=== PATIENT | female | born 1980 | race Caucasian/White ===

== ENCOUNTER 2018-10-14 22:42 | Emergency (ER) | payer MEDICAID ==
[~2018-10-14] VITALS: Ht 154.9 cm; Wt 70.7 kg
[~2018-10-14 22:42] MED LIST: DOCU-144 PO; HYDR-3498 PO; HYDR-762 PO
[2018-10-14 22:45] VITALS: Ht 154.9 cm; Wt 70.7 kg
[2018-10-15] MEDS ORDERED: HYDROCORTISONE 2.5% 30 GM RECT CR PR ONE
--- NOTE | 2018-10-15 00:05 | ERD ---
ER Documentation Chief Complaint Chief Complaint rectal pain x3 days, no bleeding HPI Patient is a 38 years old female with PMHx of hemorroids presenting to the clinic for severe rectal pain x 3 days. Patient reports pain has worsen over the last 3 days where she cannot sit anymore. Patient admits to using OTC tylenol without resolution. Patient reports running out of her hemorrhoid cream. Patient states that she has never followed up with a GI specialist. Patient denies rectal bleeding, abdominal pain, diarrhea, constipation, bloating, fever, chills, night sweats. ROS All systems reviewed and are negative except as per history of present illness. Medications Home Meds Active Scripts Psyllium Husk (with Sugar) (Metamucil Packet) 3.4 Gm Powd.pack, 3.4 GM PO BID for 10 Days Prov:FOZIA RODRIGUEZ PA-C 10/15/18 Hydrocortisone* Rectal (Protozone-HC*) 30 Gm Cr, 1 APPLIC NM BID for 7 Days, EA Prov:FOZIA RODRIGUEZ PA-C 10/15/18 Hydrocortisone Acetate (Anusol-Hc) 25 Mg Supp.rect, 1 SUPP NM BID PRN for HEMORROID PAIN/ITCHING, #12 SUPP.RECT Prov:FOZIA RODRIGUEZ PA-C 10/15/18 Docusate Sodium* (Colace*) 100 Mg Capsule, 100 MG PO TID, #30 Prov:COLLIN ZENDEJAS MD 01/19/15 Hydrocodone Bit-Acetaminophen* (Brainerd*) 10-325 Mg Tablet, 1 TAB PO Q6 PRN for PAIN, #16 TAB Prov:COLLIN ZENDEJAS MD 01/19/15 Hydrocodone Bit-Acetaminophen* (Brainerd*) 5-325 Mg Tab, 1 TAB PO Q4H PRN for SEVERE PAIN LEVEL 7-10, #20 TAB Prov:ZAK TUTTLE 01/11/15 Allergies Allergies: Coded Allergies: No Known Allergy (Unverified , 01/09/15) PMhx/Soc History of Surgery: No Anesthesia Reaction: No Hx Neurological Disorder: No Hx Respiratory Disorders: No Hx Cardiac Disorders: No Hx Psychiatric Problems: No Hx Miscellaneous Medical Probl: No Hx Alcohol Use: No Hx Substance Use: No Hx Tobacco Use: No Physical Exam Vitals Vital Signs Date Temp Pulse Resp B/P (MAP) Pulse Ox O2 O2 Flow FiO2 Time Delivery Rate 6/21/19 97.9 90 16 120/66 98 22:45 (84) Physical Exam Const: No acute distress Head: Atraumatic Eyes: Normal Conjunctiva Resp: Clear to auscultation bilaterally Cardio: Regular rate and rhythm, no murmurs Ext: No cyanosis, or edema Neur: Awake and alert Psych: Normal Mood and Affect Rectal Exam with RN Stephanie: Rectal tag noted without bleeding. No fissure noted, no abscess noted. Results 24 hrs Current Medications Medications Dose Sig/Kendrick Start Time Status Last (Trade) Ordered Route PRN Stop Time Admin Dose Reason Admin 1 applic ONCE ONCE 10/15/18 DC Hydrocortison NM 00:00 e 10/15/18 00:03 (Proctozone-H c) Procedures/MDM Patient was seen and evaluated for rectal pain. Rectal examination revealed tags without complications. No signs of infection or mass noted. Patient was given hy drocortisone rectal cream in hospital. Patient is stable and ready for discharge. Patient was advised about dietary changes (high fiber intake). Patient was advised to f/u with PCP for GI evaluation. Departure Diagnosis: Primary Impression: Acute hemorrhoid Condition: Stable Patient Instructions: Hemorrhoids Referrals: [facility] Additional Instructions: Paciente aconseja volver a Departamento de urgencias inmediatamente para sntomas nuevos o que empeoran . Paciente aconseja posteriores con el PCP en 2-3 reeder . Paciente verbaliza la comprehensin y est de acuerdo con el tratamiento y el curso de accin. Si el paciente no tiene ninguna de atencin primaria pueden seguir con [facility] [id number] [address] o [facility] + [address] [id number] FOZIA RODRIGUEZ PA-C Oct 15, 2018 00:05
[2018-10-15] MEDS ORDERED: HYDR30CR91 PR (00:37)
[2018-10-15] MEDS ORDERED: HYDR25SU23 PR (00:37)
[2018-10-15] MEDS ORDERED: PSYL3.4P11 PO (00:37)
[2018-10-15 01:26] VITALS: BP 112/74; PULSE 84; RESP 16
== END 2018-10-15 01:23 | disposition home or self-care (01) ==
LOC: FTE 22:42
DX: K64.9 Unspecified hemorrhoids (principal)
CPT/HCPCS: Z7502; Z7610; 99284